=== PATIENT | male | born 1990 | race Caucasian/White ===

== ENCOUNTER 2018-02-22 14:45 | Emergency (ER) | payer OTHER ==
[~2018-02-22] VITALS: Ht 188 cm; Wt 110.4 kg
[~2018-02-22 14:45] MED LIST: LEVO500T2 PO; ONDA4VIA22 IV; P20 PO
[2018-02-22] MEDS ORDERED: MORPHINE SULFATE 4 MG/ML CPJ (NOT FOR IM USE) IV STA (15:33)
[2018-02-22] MEDS ORDERED: ONDANSETRON HCL 4MG/2ML INJ IV STA (15:33)
[2018-02-22] MEDS ORDERED: SODIUM CHLORIDE 0.9% 1,000 ML IV ONE (15:33)
[2018-02-22 16:25] LABS: BASOPHILS % 0.3 % (0.0-2.0); HEMATOCRIT. 43.1 % (42.0-52.0); HEMOGLOBIN. 14.8 g/dL (14.0-18.0); MEAN CORPUSCULAR HEMOGLOBIN 29.6 pg (28.0-32.0); MEAN CORPUSCULAR VOLUME 85.9 fL (80.0-94.0); MONOCYTES % 7.7 % (2.0-8.0); PLATELET 315 x1000/uL (130-400); RED BLOOD CELL COUNT 5.02 mill/uL (4.7-6.1); RED CELL DISTRIBUTION WIDTH 13.3 % (11.6-14.6)
[2018-02-22 16:31] LABS: CHLORIDE 103 mEq/L (98-107)
[2018-02-22 16:33] LABS: INR 1.1; PROTHROMBIN TIME 10.6 sec (9.1-11.1)
[2018-02-22 17:16] LABS: CLARITY URINE CLEAR (CLEAR); COLOR URINE YELLOW (YELLOW); KETONES URINE NEGATIVE (NEGATIVE); LEUKOCYTE ESTERASE URINE NEGATIVE (NEGATIVE); NITRITE URINE NEGATIVE (NEGATIVE); OCCULT BLOOD URINE NEGATIVE (NEGATIVE); PROTEIN URINE NEGATIVE (NEGATIVE); SPECIFIC GRAVITY URINE 1.007 (1.005-1.030); UROBILINOGEN URINE 0.2 E.U./dL (0.2-1.0)
[2018-02-22 18:23] VITALS: BP 134/80
[2018-02-22] MEDS ORDERED: IOHEXOL-300 100 ML BOTTLE ONE (18:32)
== END 2018-02-22 18:35 | disposition home or self-care (01) ==
LOC: ER 14:45
DX: R10.9 Unspecified abdominal pain (principal); Z88.8 Allergy status to other drugs, medicaments and biological substances; Z86.718 Personal history of other venous thrombosis and embolism
CPT/HCPCS: 36415; 74177; 80053; 81003; 83690; 85025; 85610; 96361; 96374; 96375; 99284; J2270; J2405; J7030; Q9967

== ENCOUNTER 2018-05-28 01:58 | Emergency (ER) | payer OTHER ==
[~2018-05-28] VITALS: Ht 188 cm; Wt 116.0 kg
[2018-05-28] MEDS ORDERED: ACETAMINOPHEN 325MG TABLET PO ONE (07:00)
[2018-05-28 08:03] VITALS: BP 167/87
== END 2018-05-28 08:15 | disposition home or self-care (01) ==
LOC: ER 01:58
DX: S46.811A Strain of other muscles, fascia and tendons at shoulder and upper arm level, right arm, initial encounter (principal); R51 Headache; I10 Essential (primary) hypertension; V49.49XA Driver injured in collision with other motor vehicles in traffic accident, initial encounter; Y93.89 Activity, other specified; Y92.89 Other specified places as the place of occurrence of the external cause; Y99.8 Other external cause status; Z88.1 Allergy status to other antibiotic agents; Z88.6 Allergy status to analgesic agent
CPT/HCPCS: 99283

== ENCOUNTER 2018-07-31 01:29 | Emergency (ER) | payer OTHER ==
[~2018-07-31] VITALS: Ht 157.5 cm; Wt 107.0 kg
[2018-07-31] MEDS ORDERED: IBUPROFEN 600MG TABLET PO ONE (04:45)
[2018-07-31] MEDS ORDERED: ACETAMINOPHEN 500MG TABLET PO ONE (04:45)
[2018-07-31 04:50] VITALS: BP 141/83
== END 2018-07-31 04:51 | disposition home or self-care (01) ==
LOC: ER 01:29
DX: S39.012A Strain of muscle, fascia and tendon of lower back, initial encounter (principal); I10 Essential (primary) hypertension; Z88.1 Allergy status to other antibiotic agents; V43.52XA Car driver injured in collision with other type car in traffic accident, initial encounter; Y93.89 Activity, other specified; Y92.488 Other paved roadways as the place of occurrence of the external cause
CPT/HCPCS: 99283

== ENCOUNTER 2018-08-06 10:39 | Emergency (ER) | payer OTHER ==
[~2018-08-06] VITALS: Ht 188 cm; Wt 114.0 kg
[2018-08-06 10:42] VITALS: BP 139/52
== END 2018-08-06 11:14 | disposition home or self-care (01) ==
LOC: ER 10:39
DX: S90.822A Blister (nonthermal), left foot, initial encounter (principal); S90.821A Blister (nonthermal), right foot, initial encounter; I10 Essential (primary) hypertension; X58.XXXA Exposure to other specified factors, initial encounter; Y93.89 Activity, other specified; Y92.89 Other specified places as the place of occurrence of the external cause; Y99.8 Other external cause status; Z88.6 Allergy status to analgesic agent; Z88.1 Allergy status to other antibiotic agents
CPT/HCPCS: 99281

== ENCOUNTER 2022-07-18 11:59 | Emergency (ER) | payer OTHER ==
[~2022-07-18] VITALS: Ht 188 cm; Wt 154.0 kg
[2022-07-18] MEDS ORDERED: SODIUM CHLORIDE 0.9% 1,000 ML IV ONE (12:45)
[2022-07-18] MEDS ORDERED: ONDANSETRON 4MG ODT PO ONE (12:45)
[2022-07-18 13:18] LABS: BASOPHILS % 0.1 % (0.0-2.0); EOSINOPHILS % 1.3 % (0.0-5.0); HEMATOCRIT. 48.4 % (42.0-52.0); HEMOGLOBIN. 16.8 g/dL (14.0-18.0); LYMPHOCYTES % 16.4 % (20.0-50.0); MEAN CORPUSCULAR HEMOGLOBIN 29.2 pg (28.0-32.0); MEAN CORPUSCULAR VOLUME 83.9 fL (80.0-94.0); MEAN PLATELET VOLUME 8.2 fl (7.4-10.4); MONOCYTES % 5.7 % (2.0-8.0); NEUTROPHILS % 76.5 % (40.0-76.0); PLATELET 429 x1000/uL (130-400); RED BLOOD CELL COUNT 5.76 mill/uL (4.7-6.1); RED CELL DISTRIBUTION WIDTH 13.3 % (11.6-14.6)
[2022-07-18 13:27] LABS: CHLORIDE 106 mEq/L (98-107)
[2022-07-18 13:36] LABS: BETA HYDROXYBUTYRATE 0.1 mMol/L (0.0-0.3)
[2022-07-18 14:31] LABS: CLARITY URINE TURBID (CLEAR); COLOR URINE DARK YELLOW (YELLOW); KETONES URINE NEGATIVE (NEGATIVE); LEUKOCYTE ESTERASE URINE NEGATIVE (NEGATIVE); NITRITE URINE NEGATIVE (NEGATIVE); OCCULT BLOOD URINE NEGATIVE (NEGATIVE); PH URINE 5.5 (4.5-8.0); PROTEIN URINE 1+ (NEGATIVE); SPECIFIC GRAVITY URINE 1.033 (1.005-1.030); UROBILINOGEN URINE 0.2 E.U./dL (0.2-1.0)
[2022-07-18 15:54] VITALS: BP 128/69
== END 2022-07-18 15:55 | disposition home or self-care (01) ==
LOC: ER 11:59
DX: R11.2 Nausea with vomiting, unspecified (principal); R19.7 Diarrhea, unspecified; R06.02 Shortness of breath; E11.9 Type 2 diabetes mellitus without complications; I10 Essential (primary) hypertension; Z20.822 Contact with and (suspected) exposure to COVID-19; Z88.1 Allergy status to other antibiotic agents
CPT/HCPCS: 36415; 71045; 80053; 81003; 82010; 83605; 83690; 85025; 87426; 87804; 96360; 96361; 99284; C9803; J7030; Q0162; Z7610

== ENCOUNTER 2024-12-01 21:08 | Emergency (ER) | payer MEDICAID, OTHER ==
[~2024-12-01] VITALS: Ht 188 cm; Wt 142.0 kg
[2024-12-01 21:28] VITALS: O2SAT 96
[2024-12-01] MEDS ORDERED: METOCLOPRAMIDE HCL 10MG TABLET PO ONE (21:30)
[2024-12-01] MEDS ORDERED: ACETAMINOPHEN 500MG TABLET PO ONE (21:30)
[2024-12-01] MEDS ORDERED: TOPUD MT (23:39)
[2024-12-01] MEDS ORDERED: LIDO-53 TP (23:39)
[2024-12-01] MEDS: ACETAMINOPHEN 500MG TABLET PO NR (23:59)
[2024-12-01] MEDS: METOCLOPRAMIDE HCL 10MG TABLET PO NR (23:59)
[2024-12-02 00:04] VITALS: BP 149/96; PULSE 83; RESP 12; TEMP 36.9; O2SAT 99
== END 2024-12-02 00:08 | disposition home or self-care (01) ==
LOC: ER 21:08
DX: S02.2XXA Fracture of nasal bones, initial encounter for closed fracture (principal); S01.21XA Laceration without foreign body of nose, initial encounter; E11.9 Type 2 diabetes mellitus without complications; I10 Essential (primary) hypertension; Z79.52 Long term (current) use of systemic steroids; Z88.1 Allergy status to other antibiotic agents; Z88.6 Allergy status to analgesic agent; W19.XXXA Unspecified fall, initial encounter; Y93.89 Activity, other specified; Y92.89 Other specified places as the place of occurrence of the external cause; Y99.8 Other external cause status
CPT/HCPCS: 70486; 99284; J8597; Z7610; 99283